=== PATIENT | male | born 1950 ===

== ENCOUNTER 2018-06-20 07:08 | Day surgery (SDC) | payer MEDICARE, MEDICAID ==
[2015-10-12 15:21] VITALS: BMI 26.2
[2018-06-20] MEDS ORDERED: Lactated Ringer's 500 ML IV ONE (07:37)
[2018-06-20] MEDS ORDERED: Propofol 10 mg/ml Inj (20 ML) ONE (08:14)
[2018-06-20] MEDS ORDERED: Lactated Ringer's 500 ML IV SCH (08:30)
[2018-06-20 08:39] VITALS: O2SAT 100
[2018-06-20 08:50] VITALS: BP 121/78; PULSE 58; RESP 14; TEMP 96.9
== END 2018-06-20 12:50 | disposition home or self-care (01) ==
LOC: H.ENDO 07:08
PROVIDERS: ATTEND Internal Medicine Gastroenterology
DX: Z12.11 Encounter for screening for malignant neoplasm of colon (principal); E78.5 Hyperlipidemia, unspecified; I10 Essential (primary) hypertension; K64.0 First degree hemorrhoids
CPT/HCPCS: 45378; J2001; J2704; J7120